=== PATIENT | female | born 1980 | race Caucasian/White ===

== ENCOUNTER 2018-12-30 04:51 | Observation (INO) ==
[2018-12-30] MEDS ORDERED: Naloxone 0.4 MG/ML INJ IVP PRN (08:50)
[2018-12-30] MEDS ORDERED: Isovue-370 500 ML BOTTLE IVP ONE ×3 (08:57→11:35)
[2018-12-30 09:28] LABS: INR 2.7; Prothrombin Time 30.4 Seconds (9.4-12.1)
[2018-12-30] MEDS: Piperacillin/Tazobactam 3.375 GM in 0.9 % Sodium Chloride Mini Bag 100 ML IVPB SCH (15:40)
[2018-12-30] MEDS: Acetaminophen 325 MG TABLET PO PRN (15:41)
[2018-12-30] MEDS ORDERED: Warfarin perPT PO PRN (18:00)
[2018-12-30] MEDS ORDERED: *HR* Warfarin 10 MG TABLET PO SCH (18:00)
[2018-12-30] MEDS: *HR* OxyCODONE/APAP 5/325 TABLET PO PRN (18:43)
[2018-12-31] MEDS: Piperacillin/Tazobactam 3.375 GM in 0.9 % Sodium Chloride Mini Bag 100 ML IVPB SCH (00:43)
[2018-12-31 04:57] LABS: Basophils # 0.1 K/mcL (0.0-0.2); Basophils % 0.8 %; Eosinophils # 0.3 K/mcL (0.0-0.6); Eosinophils % 3.5 %; Hemoglobin 11.1 g/dL (11.5-15.4); Immature Granulocytes % 0.2 % (0-4); Lymphocytes # 2.7 K/mcL (0.6-4.6); Lymphocytes % 30.2 %; Mean Corpuscular HGB Conc 32.6 g/dL (31.6-35.5); Mean Corpuscular Hemoglobin 24.4 pg (28.0-33.3); Mean Corpuscular Volume 74.7 fL (83.0-100.0); Monocytes # 0.5 K/mcL (0.0-1.3); Monocytes % 5.5 %; Neutrophils # 5.3 K/mcL (1.6-8.9); Platelet Count 250 K/mcL (140-400); Red Blood Count 4.55 M/mcL (3.82-4.97); Red Cell Distribution Width 17.3 % (11.5-14.5); Segmented Neutrophils % 59.8 %; White Blood Count 8.8 K/mcL (4.3-11.1)
[2018-12-31] MEDS: *HR* OxyCODONE/APAP 5/325 TABLET PO PRN (04:57)
[2018-12-31 05:00] LABS: INR 2.2; Prothrombin Time 24.8 Seconds (9.4-12.1)
[2018-12-31 05:16] LABS: BUN/Creatinine Ratio 11 (6-26); Blood Urea Nitrogen 9 mg/dL (6-20); Calcium 8.5 mg/dL (8.6-10.3); Carbon Dioxide 23 mEq/L (23-29); Chloride 111 mEq/L (98-107); Glucose 91 mg/dL (70-105); Magnesium 1.8 mg/dL (1.6-2.6); Osmolality,Calculated 282 (280-300); Phosphorous 3.3 mg/dL (2.7-4.5); Sodium 137 mEq/L (136-145); eGFR For African Americans > 60 (> 60); eGFR For Non-African Americans > 60 (> 60)
[2018-12-31 05:19] VITALS: BP 107/67
[2018-12-31] MEDS: Acetaminophen 325 MG TABLET PO PRN (09:47)
[2018-12-31] MEDS ORDERED: Aminoglycoside Consult 1 EACH MC ONE (11:58)
[2018-12-31] MEDS ORDERED: *HR* Warfarin 10 MG TABLET PO ONE (18:00)
== END 2018-12-31 11:59 | disposition home or self-care (01) ==
LOC: 3ANU → SUATTDRO 08:27
PROVIDERS: ADMIT Internal Medicine; ATTEND Family Medicine